=== PATIENT | female | born 1990 | race Caucasian/White ===

== ENCOUNTER 2018-09-24 07:03 | Day surgery (SDC) | payer OTHER ==
--- NOTE | 2018-09-22 18:45 | HP ---
PREOPERATIVE HISTORY AND PHYSICAL: DATE OF SURGERY/ADMISSION: 09/24/18 [facility] DATE OF OFFICE VISIT/ENCOUNTER: 08/28/18 ATTENDING SURGEON: Gloria Leslie M.D.* (DICTATED BY JANET VELASCO) PROCEDURE: Excision mass, right index finger. CHIEF COMPLAINT: Mass, right index finger. 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 It has been present about 3 weeks. There was no injury that she recalls. She is concerned about it because she is worried she is going to lose range of motion. She has some minimal associated pain. There is no numbness or tingling. She has consented to proceed with surgical excision of the mass. PAST MEDICAL HISTORY: History of pneumothorax. PAST SURGICAL HISTORY: Adenoidectomy. CURRENT MEDICATIONS: None. ALLERGIES: No known drug allergies. FAMILY MEDICAL HISTORY: Cancer. 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 She denies tobacco use and recreational drug use. She drinks alcohol on occasion. REVIEW OF SYSTEMS: Negative for general, cephalic, cardiovascular, respiratory , GI, , other musculoskeletal, integumentary, endocrine, neurologic, hematologic symptoms . Infectious Disease: Negative for history of MRSA, hepatitis C, HIV. PHYSICAL EXAMINATION GENERAL: Well-developed, well-nourished, 28-year-old female, in no acute distress. VITAL SIGNS: Height 5 feet 5 inches, weight 115 pounds, blood pressure 112/72. HEENT: Normocephalic, atraumatic. Pupils are equal, round, and reactive to light and accommodation. Extraocular movements are intact. Throat is clear. NECK: Supple. No palpable lymph nodes. PULMONARY: Lungs are clear to auscultation bilaterally. No wheezes, rales or rhonchi. CARDIOVASCULAR: Regular rate and rhythm. S1, S2. No murmurs, rubs or gallops. No edema. ABDOMEN: Positive bowel sounds. Soft, nontender. MUSCULOSKELETAL: On exam of her right hand, she has a small cystic mass at the MP flexion crease at the index finger. It is tender to palpation. It does not limit her range of motion. Negative Tinel sign associated with it. She has intact neurovascular function. Skin is intact. NEUROLOGIC: Alert and oriented x3. Cranial nerves II through XII are intact. Sensation is intact to light touch. IMPRESSION: Ganglion cyst of the right index finger, flexor tendon sheath. PLAN/RECOMMENDATIONS: The patient is scheduled to undergo an excision mass right index finger with Dr. Leslie on 09/24/18. She will return to the office 10 days postop for followup and suture removal. A prescription for Ultracet was e-scribed to the patient's pharmacy for postoperative pain management. JANET VELASCO [id number]/[facility] #: [id number]
[~2018-09-24 07:03] MED LIST: Buffered Lidocaine 0.9% SYRIN* 5 ML/SYR SYRINGE INTRADERM ONE; Dexamethasone TAB* 4 MG PO ONE; Famotidine IV* 10 MG/ML 2 ML (20 mg) IV ONE; Lactated Ringers 1000 ML Bag* 1,000 ML IV SCH; Ondansetron TAB* 4 MG PO ONE
[2018-09-24] MEDS ORDERED: Ondansetron ODT TAB* 4 MG ONE (07:48)
[2018-09-24] MEDS ORDERED: Dexamethasone TAB* 4 MG ONE (07:48)
[2018-09-24] MEDS ORDERED: Famotidine IV* 10 MG/ML 2 ML (20 mg) ONE (07:48)
[2018-09-24] MEDS ORDERED: Naloxone* 0.4 MG/ML 1 ML VIAL IV PRN (08:13)
[2018-09-24] MEDS ORDERED: fentaNYL* 50 MCG/ML 2 ML VIAL (100 MCG VIAL) IV PRN (08:13)
[2018-09-24] MEDS ORDERED: PROCHLORPERAZINE INJ 5 MG/ML 2 ML VIAL IV PRN (08:13)
[2018-09-24] MEDS ORDERED: oxyCODONE/Acetamin 5/325 MG* TAB PO PRN (08:13)
[2018-09-24] MEDS ORDERED: DiMENhydriNATE IV* 50 MG/ML VIAL IV PUSH PRN (08:13)
[2018-09-24] MEDS ORDERED: fentaNYL* 50 MCG/ML 2 ML VIAL (100 MCG VIAL) ONE (08:23)
[2018-09-24] MEDS ORDERED: Midazolam* 1 MG/ML 5 ML VIAL (5 MG) ONE (08:23)
[2018-09-24] MEDS ORDERED: Lidocaine 1% INJ* 10 MG/ML 30 ML SDV ONE (08:57)
[2018-09-24] MEDS ORDERED: Ketorolac INJ* 30 MG/ML 1 ML VIAL ONE (09:24)
[2018-09-24] MEDS ORDERED: Lidocaine 2% PF * 5 ML VIAL ONE (09:24)
[2018-09-24] MEDS ORDERED: Propofol* 10 MG/ML 20 ML BTL ONE (09:24)
[2018-09-24 09:56] VITALS: BP 90/59
--- NOTE | 2018-09-24 16:27 | OP ---
CC: Dr. Leslie OPERATIVE REPORT: DATE OF OPERATION: 09/24/18 DATE OF : 88 SURGEON: Gloria Leslie MD PRIMARY HEALTH ORGANISATION MANAGER: JANET John ANESTHESIA: Local MAC. PRE-OP DIAGNOSIS: Right index finger mass. POST-OP DIAGNOSIS: Right index finger mass. OPERATIVE PROCEDURE: Removal right index finger mass. ESTIMATED BLOOD LOSS: Zero. TOURNIQUET TIME: Approximately 10 minutes. INDICATION FOR PROCEDURE: Meggan is a 28-year-old female who has a painful mass at the MP flexion cr ease of her right index finger, she presents for excision. DESCRIPTION OF PROCEDURE: The patient was brought to the operating room, was given a sedation anesth etic and a local infiltration of 10 cc of 1% plain lidocaine at the volar base of the right index fin ten. The skin of her right hand and forearm was prepped and draped in the usual sterile fashion. Th e hand and forearm were exsanguinated and the tourniquet elevated to 250 mmHg. A transverse incision was made in the MP flexion crease of the right index finger. We dissected bluntly through the subcu taneous tissue down to the flexor tendon sheath. The digital neurovascular bundles were located and protected by the registered nurse surgical services, Kathy Mittal, with Ragnell retractors. The ganglion cyst was removed with a small portion of the flexor tendon sheath. The tendons were in good condition. The w ound was irrigated and the skin edges reapproximated with 4-0 nylon suture. The wound was dressed wi th Xeroform, 4x4, Webril, and an Dusty wrap. The patient tolerated the procedure well and was brought to the recovery room in good condition. [id number]/[facility] #: [id number]
== END 2018-09-24 10:12 | disposition home or self-care (01) ==
LOC: OREAST 07:03
PROVIDERS: ATTEND Orthopaedic Surgery
DX: M67.441 Ganglion, right hand (principal)
CPT/HCPCS: 81025; 88304; A9270-GY; J1885; J2250; J2704; J3010; J8540